=== PATIENT | female | born 1985 | race Caucasian/White ===

== ENCOUNTER 2024-04-03 05:10 | Day surgery (SDC) | payer OTHER ==
[2024-04-02 10:27] VITALS: BMI 31.1
[2024-04-03] MEDS ORDERED: oxyCODONE HCL 5 MG TABLET PO PRN ×3 (08:50→10:11)
[2024-04-03] MEDS ORDERED: ONDANSETRON 4 MG/2 ML VIAL IVPUSH PRN ×2 (08:50→10:11)
[2024-04-03] MEDS ORDERED: MIDAZOLAM HCL 2 MG/2 ML SINGLE DOSE VIAL ONE (09:00)
[2024-04-03] MEDS ORDERED: LACTATED RINGERS SOLUTION 1,000 ML IV SCH (09:00)
[2024-04-03] MEDS ORDERED: KETOROLAC TROMETHAMINE 30 MG/1 ML VIAL ONE (09:00)
[2024-04-03] MEDS ORDERED: PROPOFOL 20 ML ONE (09:00)
[2024-04-03] MEDS ORDERED: ceFAZolin SODIUM 1 GM VIAL ONE (09:20)
[2024-04-03] MEDS: ceFAZolin SODIUM 1 GM VIAL IVPB ONE (09:24)
[2024-04-03] MEDS: ACETAMINOPHEN 1000 MG/100 ML BAG IVPB PRN (10:05)
[2024-04-03] MEDS ORDERED: IBUPROFEN 600 MG TABLET (FP) PO PRN (10:11)
[2024-04-03] MEDS ORDERED: IBUPROFEN 800 MG/8 ML IJ IVPB PRN (10:11)
[2024-04-03] MEDS ORDERED: ELECTROLYTE-148 SOLN 1,000 ML IV SCH (10:15)
[2024-04-03 12:14] VITALS: BP 96/55; PULSE 70; RESP 18; TEMP 97.2
== END 2024-04-03 12:00 | disposition home or self-care (01) ==
LOC: JASU-SURG 05:10
PROVIDERS: ATTEND Obstetrics & Gynecology
PROC: 10A07ZZ Abortion of Products of Conception, Via Natural or Artificial Opening (ICD-10-PCS; principal; 2024-04-03 09:00)
DX: Z33.2 Encounter for elective termination of pregnancy (principal)
CPT/HCPCS: 88305-TC; 94760; J0131